=== PATIENT | male | born 1960 | race Caucasian/White ===

== ENCOUNTER 2025-04-14 11:56 | Outpatient (AMB) | payer BC, SELFPAY ==
--- OUTSIDE RECORDS SUMMARY | 2025-04-14 13:11 | XMS_ITS | Clinical Summary ---
Author Organization [address] [place] [address] [place] [phone] Phone Care Team Providers Care Export Documents Clerk Name Role Phone Nirali English MD Primary Care Provider [phone]- [phone] Allergies Active Allergy Reactions Criticality Noted Date Comments House Dust 06/12/2023 Ragweed 06/12/2023 Medications apixaban (Eliquis) 5 mg tablet Take 1 tablet (5 mg total) by mouth 2 (two) times a day. 3 Active LORazepam (ATIVAN) 0.5 mg tablet See Instructions, PRN as needed for anxiety, 1-2 tablet By Mouth Daily at bedtime, # 30 tablet, 1 Refills, Maintenance, 09/13/23 2:07:00 PM EST, Tablet, [id number], Partial fill upon patient request if the prescription is for a schedule II opioid drug. DOSE CHANGE, 176, cm, 09/13/23 13:25:00 EST, Height, 97.6, kg, 05/25/23 11:11:00 EDT, Dry Weight 4 Active dilTIAZem CD (CARDIZEM CD) 180 mg 24 hr capsule Take 1 capsule (180 mg total) by mouth 1 (one) time each day. 90 capsule 1 5 Active Active Problems Problem Noted Date Diagnosed Date Coronary artery calcification 11/12/2024 Overview (11/12/2024): Coronary calcium scan performed. Agate stent score 147 37 left main 71 in the LAD and 39 circumflex. Assessment & Plan (11/12/2024 10:57 AM EDT): Stable coronary disease with no active angina. I again discussed the pros and cons of lipid-lowering but he is reluctant to start statin. He will continue healthy diet. Encouraged regular exercise which he generally does not do. He is treating his obstructive sleep apnea with CPAP. HLD (hyperlipidemia) 11/08/2024 GURPREET (obstructive sleep apnea) 11/08/2024 Primary hypertension 06/12/2023 Overview (08/05/2024): Primary hypertension Last Assessment & Plan: Continues to be normotensive. Continue to diltiazem and a low-sodium diet. Continue regular exercise. Assessment & Plan (11/12/2024 10:56 AM EDT): Appears relatively well-controlled on current medications. Continue low-sodium diet and efforts at weight loss. PAF (paroxysmal atrial fibri llation) ([facility] V24, [facility] V28) 12/06/2022 Overview (08/05/2024): Paroxysmal atrial fibrillation: Status post pulmonary isolation with cryoballoon ablation April 2019. He had 1 apparent episode of SVT that terminated with carotid massage. There is no inducible SVT at the time of his ablation. He is no longer anticoagulated and continues to have a Chadsvasc score of 1. Last Assessment & Plan: No recurrent atrial fibrillation since her last visit. We will continue with diltiazem for antihypertensive effect and rate control. We can use flecainide if needed but hopefully will not have any recurrent episodes. Continue to avoid excessive alcohol and follow a healthy lifestyle with regular exercise. Assessment & Plan (11/12/2024 10:56 AM EDT): This 64-year-old gentleman has symptomatic paroxysmal atrial fibrillation with pulmonary vein isolation 2018 and again in November 2023 with reisolation of the pulmonary veins. He has been off of antiarrhythmic agents with only a few somewhat brief breakthroughs. Based on [id number] score of 3 for hypertension, age and coronary disease he continues on Eliquis but is running into difficulty with GI bleeding. He has another follow-up appointment with a GI specialist who is suggesting an alternative to Eliquis. I went through the left atrial appendage closure process with him discussing the risks and benefits, alternatives and he would like to proceed. I will have a DEMARCUS performed to look at the MORTEZA anatomy and decide if we can continue. Encounters Date Type Department Care Team Description 03/31/2025 Telephone [facility] Cardiology [facility] [address] [place] [phone] Abby Rodriguez NP Procedure (DEMARCUS Assess WATCHMAN 9.5.25) 03/26/2025 Telephone [facility] [address] [place] [address] [address] [place] [phone] Zack Schmidt MD Advice Only from Last 3 Months Social History Tobacco Use Types Packs/Day Years Used Date Smoking Tobacco: Former Smokeless Tobacco: Never Tobacco Cessation:Counseling Given: Not Answered Alcohol Use Standard Drinks/Week Comments Yes 0 (1 standard drink = 0.6 oz pur e alcohol) Sex and Gender Information Value Date Recorded Sex Assigned at Not on file Legal Sex Male 3:18 AM EST Gender Identity Not on file Sexual Orientation Not on file Obstetrics History Last Filed Vital Signs Vital Sign Reading Time Taken Comments Blood Pressure 128/88 11/12/2024 10:07 AM EDT Pulse 67 11/12/2024 10:07 AM EDT Temperature - - Respiratory Rate - - Oxygen Saturation 95% 11/12/2024 10:07 AM EDT Inhaled Oxygen Concentration - - Weight 104 kg (230 lb) 11/12/2024 10:07 AM EDT Height 175.3 cm (5' 9 ) 11/12/2024 10:07 AM EDT Body Mass Index 33.97 11/12/2024 10:07 AM EDT Plan of Treatment Upcoming Encounters Date Type Department Care Team (Late st Contact Info) Description 05/02/2025 1:30 PM EDT Appointment [facility] Cardiac [employer] [address] [place] [phone] Kiran Madera MD [address] [place] [address] [address] [place], [place] [phone] Scheduled Procedures Name Priority Associated Diagnoses Date/Ti me LEFT ATRIAL APPENDAGE CLOSUR E (OTHER) PAF (paroxysmal atrial fibrillation) ([facility] V24, [facility] V28) Health Maintenance Due Date Last Done Comments Pneumococcal Vaccine: 50+ Years (1 of 1 - PCV) 2008 Zoster Vaccines (1 of 2) 2008 Abdominal Aortic Aneurysm (AAA) Screen 08/06/2022 Cholesterol Screening (Lipid Panel) 08/06/2022 Colorectal Cancer Screening: Colonoscopy 08/06/2022 Hepatitis C Screening 08/06/2022 Social Influencers of Health Screening 08/06/2022 Falls Risk Assessment 2023 COVID-19 Vaccine (1 - 2023-2 5 season) 2024 Depression Screening 08/28/2024 Influenza Vaccine (#1) 2025 Hypertension/CHF/CAD Annual BMP Blood Test 04/07/2026 04/07/2025 RSV Immunization Adult Patients (1 - 1-dose 75+ series) 2033 DTaP,Tdap,and Td Vaccines (3 - Td or Tdap) 09/13/2033 09/13/2023, 02/08/2013 HIB Vaccines Aged Out No longer eligi ble based on patient's age to complete this topic HPV Vaccines Aged Out No longer eligi ble based on patient's age to complete this topic Hepatitis A Vaccines Aged Out No long er eligible based on patient's age to complete this topic Hepatitis B Vaccines Aged Out No long er eligible based on patient's age to complete this topic IPV Vaccines Aged Out No longer eligi ble based on patient's age to complete this topic MMR Vaccines Aged Out No longer eligi ble based on patient's age to complete this topic Meningococcal ACWY Vaccine Aged Out N o longer eligible based on patient's age to complete this topic Meningococcal B Vaccine Aged Out No l onger eligible based on patient's age to complete this topic RSV Immunization Patients Under 20 months Aged Out No longer eligible b ased on patient's age to complete this topic Varicella Vaccines Aged Out No longer eligible based on patient's age to complete this topic Procedures Procedure Name Priority Date/Time Associated Diagnosis Comments BASIC METABOLIC PANEL Routine 04/07/2025 3:48 PM EDT PAF (paroxysmal atrial fibrillation) ([facility] V24, [facility] V28) PROTHROMBIN TIME WITH INR Routine 04/07/2025 3:48 PM EDT PAF (paroxysmal atrial fibrillation) (CMS/HCC V24, CMS/HCC V28) COMPLETE BLOOD COUNT Routine 04/07/2025 3:48 PM EDT PAF (paroxysmal atrial fibrillation) (CMS/HCC V24, CMS/HCC V28) from Last 3 Months Results * Prothrombin time with INR (04/07/2025 3:48 PM EDT) Pathologist [facility] Protime 11.7 10.6 - 13.9 sec LAB COAGULATION METHOD 04/07/2025 4:21 PM EDT [facility] INR 0.9 LAB COAGULATION METHOD 04/07/2025 4:21 PM EDT [facility] Blood Venous blood specimen / Unknown Venipuncture / Unknown 04/07/2025 3:48 PM EDT 04/07/2025 3:59 PM EDT us Abby Rodriguez FLAME HARDENING MACHINE SETTER LAB BLOOD ORDERABLES Final R esult [facility] [address] [place] [address], * (ABNORMAL) Complete blood count (04/07/2025 3:48 PM EDT) Pathologist [facility] WBC 10.4 4.8 - 10.8 K/mcL LAB HEMETOLOGY METHOD 04/07/2025 4:20 PM EDT [facility] RBC 5.70(H) 4.50 - 5.50 M/mcL LAB HEMETOLOGY METHOD 04/07/2025 4:20 PM EDT [facility] Hemoglobin 16.2 13.5 - 17.5 g/dL LAB HEMETOLOGY METHOD 04/07/2025 4:20 PM EDT [facility] Hematocrit 49.5 42.0 - 54.0 % LAB HEMETOLOGY METHOD 04/07/2025 4:20 PM EDT [facility] MCV 86.5 79.0 - 98.0 FL LAB HEMETOLOGY METHOD 04/07/2025 4:20 PM EDT [facility] MCH 28.3 27.0 - 32.0 pcg LAB HEMETOLOGY METHOD 04/07/2025 4:20 PM EDT [facility] MCHC 32.7 32.0 - 37.0 g/dL LAB HEMETOLOGY METHOD 04/07/2025 4:20 PM EDT [facility] RDW 14.5 11.0 - 15.0 % LAB HEMETOLOGY METHOD 04/07/2025 4:20 PM EDT [facility] Platelets 189 130 - 400 K/mcL LAB HEMETOLOGY METHOD 04/07/2025 4:20 PM EDT [facility] MPV 9.6 7.0 - 11.0 FL LAB HEMETOLOGY METHOD 04/07/2025 4:20 PM EDT [facility] NRBC 0.0 <1.0 % LAB HEMETOLOGY METHOD 04/07/2025 4:20 PM EDT [facility] NRBC Absolute 0.00 <0.10 K/mcL LAB HEMETOLOGY METHOD 04/07/2025 4:20 PM EDT [facility] Blood Venous blood specimen / Unknown Venipuncture / Unknown 04/07/2025 3:48 PM EDT 04/07/2025 3:59 PM EDT us Abby Rodriguez FLAME HARDENING MACHINE SETTER LAB BLOOD ORDERABLES Final R esult [facility] [address] [place] [address], * (ABNORMAL) Basic metabolic panel (04/07/2025 3:48 PM EDT) Sodium 140 133 - 145 mmol/L LAB CHEMISTRY METHOD 04/07/2025 5:09 PM [facility] Potassium 4.3 3.5 - 5.5 mmol/L LAB CHEMISTRY METHOD 04/07/2025 5:09 PM [facility] Chloride 108 96 - 110 mmol/L LAB CHEMISTRY METHOD 04/07/2025 5:09 PM [facility] CO2 30 21 - 32 mmol/L LAB CHEMISTRY METHOD 04/07/2025 5:09 PM [facility] Anion Gap 2(L) 3 - 11 LAB CHEMISTRY METHOD 04/07/2025 5:09 PM [facility] Glucose 101(H) 70 - 100 mg/dL LAB CHEMISTRY METHOD 04/07/2025 5:09 PM [facility] BUN 18 5 - 25 mg/dL LAB CHEMISTRY METHOD 04/07/2025 5:09 PM [facility] Creatinine 1.18 0.70 - 1.30 mg/dL LAB CHEMISTRY METHOD 04/07/2025 5:09 PM [facility] eGFR 68 >=60 mL/min/1. 73m2 LAB CHEMISTRY METHOD 04/07/2025 5:09 PM [facility] Comment:Calculation based on the Chronic Kidney Disease Epidemiology Collaboration (CKD-EPI) equation refit without adjustment for race. BUN/Creatinine Ratio 15.3 LAB CHEMISTRY METHOD 04/07/2025 5:09 PM [facility] Calcium 8.9 8.5 - 10.5 mg/dL LAB CHEMISTRY METHOD 04/07/2025 5:09 PM [facility] Blood Venous blood specimen / Unknown Venipuncture / Unknown 04/07/2025 3:48 PM EDT 04/07/2025 3:58 PM EDT Abby Rodriguez FLAME HARDENING MACHINE SETTER LAB BLOOD ORDERABLES Final R esult [facility] [address] [place] [address], from Last 3 Months Insurance MEDICARE [facility] Advance Directives Documents on File Type Date Recorded 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
== END 2025-04-14 11:58 | disposition home or self-care (01) ==
LOC: HO.HMGAL 11:56
PROVIDERS: PCP Internal Medicine; Visit Provider Registered Nurse Emergency
DX: J30.89 Other allergic rhinitis (principal)
CPT/HCPCS: 95117; 95165

== ENCOUNTER 2025-05-21 11:37 | Outpatient (AMB) | payer BC, SELFPAY ==
--- OUTSIDE RECORDS SUMMARY | 2025-05-21 14:42 | XMS_ITS | Encounter Summary ---
Author Organization [facility] [place] [address] Care Team Providers Care Circular Knife Machine Cutter Name Role Phone Nirali English MD Primary Care Provider +1- [phone] Reason for Visit * Reason Onset Date Comments Results 05/16/2025 Encounter Details Date Type Department Care Team (Late st Contact Info) Description 05/16/2025 Telephone [facility] [address] [facility] [address] [place] [phone] Zack Schmidt MD [address] [place] [address] [place] [phone] Social History Tobacco Use Types Packs/Day Years Used Date Smoking Tobacco: Former Smokeless Tobacco: Never Alcohol Use Standard Drinks/Week Comments Yes 0 (1 standard drink = 0.6 oz pur e alcohol) Sex and Gender Information Value Date Recorded Sex Assigned at Not on file Legal Sex Male 3:18 AM EST Gender Identity Not on file Sexual Orientation Not on file documented as of this encounter Progress Notes * Rhea Rodriguez RN - 05/16/2025 1:17 PM EDT Interpretation summary noted for DEMARCUS. Please review/advise regarding next steps. * Surekha Bliss - 05/16/2025 1:11 PM EDT Patient called to get the test results for his DEMARCUS on 05/02/25. Please call back [phone]. documented in this encounter Plan of Treatment Scheduled Procedures Name Priority Associated Diagnoses Date/Ti me LEFT ATRIAL APPENDAGE CLOSUR E (OTHER) PAF (paroxysmal atrial fibrillation) ([facility] V24, [facility] V28) documented as of this encounter Visit Diagnoses Not on filedocumented in this encounter Care Teams Circular Knife Machine Cutter Relationship Specialty Start Date End Date Nirali English MD [address] [place] [address] PCP - General Internal Medicine 05/17/21 documented as of this encounter
--- OUTSIDE RECORDS SUMMARY | 2025-05-21 14:43 | XMS_ITS | Clinical Summary ---
Author Organization [address] [place] [address] [place] [phone] Phone Care Team Providers Care Business Process Coordinator Name Role Phone Nirali English MD Primary Care Provider +1- [phone] Allergies Active Allergy Reactions Criticality Noted Date [...] Maintenance, 09/13/23 2:07:00 PM EST, Tablet, [id number], Partial fill upon patient request if the [...] weight loss. PAF (paroxysmal atrial fibri llation) ([facility] V24, [facility] V28) 12/06/2022 Overview (08/05/2024): Paroxysmal [...] a few somewhat brief breakthroughs. Based on [id number] score of 3 for hypertension, age and [...] Encounters Date Type Department Care Team Description 05/16/2025 Telephone [facility] Cardiology [facility] [address] [facility] [address] [place] [phone] Zack Schmidt MD 05/05/2025 Episode Changes [facility] Cardiac Cashier And Waiter/Waitress [address] [place] [address] Rosa Elena Wolf RN 05/02/2025 2:15 PM EDT Anesthesia Event [facility] Cardiac Cashier And Waiter/Waitress [address] [place] [phone] Danielito Burkett MD 05/02/2025 12:22 PM EDT - 05/02/2025 11:59 PM EDT Hospital Encounter [facility] Cardiac Cashier And Waiter/Waitress [address] [place] [phone] Kiran Madera MD Claudio, Raymund, CRNA PAF (paroxysmal atrial fibrillation) ([facility] V24, [facility] V28) Discharge Disposition: Home or Self Care 03/31/2025 Telephone [facility] Cardiology [facility] [address] [facility] [address] [place] [phone] Abby Rodriguez NP 03/26/2025 Telephone [facility] [address] [place] [phone] Zack Schmidt MD from Last 3 Months Social History Tobacco [...] Sign Reading Time Taken Comments Blood Pressure 132/97 05/02/2025 3:30 PM EDT Pulse 73 05/02/2025 3:30 PM EDT Temperature - - Respiratory Rate 22 05/02/2025 3:30 PM EDT Oxygen Saturation 93% 05/02/2025 3:30 PM EDT Inhaled Oxygen Concentration - - Weight 101 kg (222 lb) 05/02/2025 1:12 PM EDT Height 175.3 cm (5' 9 ) 05/02/2025 1:12 PM EDT Body Mass Index 32.78 05/02/2025 1:12 PM EDT Plan of Treatment Scheduled Procedures Name Priority Associated Diagnoses Date/Ti me LEFT ATRIAL APPENDAGE CLOSUR E (OTHER) PAF (paroxysmal atrial fibrillation) ([facility] V24, [facility] V28) Health Maintenance Due Date Last Done Comments Pneumococcal Vaccine: 50+ Years (1 of 1 - PCV) 2008 Zoster Vaccines (1 of 2) 2008 Abdominal Aortic Aneurysm (AAA) Screen 08/06/2022 Cholesterol Screening (Lipid Panel) 08/06/2022 Colorectal Cancer Screening: Colonoscopy 08/06/2022 Hepatitis C Screening 08/06/2022 Social Influencers of Health Screening 08/06/2022 Falls Risk Assessment 2023 Depression Screening 08/28/2024 COVID-19 Vaccine (1 - 2023-2 5 season) 2025 Influenza Vaccine (#1) 2025 Hypertension/CHF/CAD Annual BMP [...] Procedure Name Priority Date/Time Associated Diagnosis Comments DEMARCUS COMPLETE W/COLOR FLOW AND SPECTRAL DOPPLER Routine 05/02/2025 3:04 PM EDT PAF (paroxysmal atrial fibrillation) (CMS/HCC V24, CMS/HCC V28) BASIC METABOLIC PANEL Routine 04/07/2025 3:48 PM EDT PAF (paroxysmal atrial fibrillation) (CMS/HCC V24, CMS/HCC V28) PROTHROMBIN TIME WITH INR Routine 04/07/2025 3:48 PM EDT PAF (paroxysmal atrial fibrillation) (CMS/HCC V24, CMS/HCC V28) COMPLETE BLOOD COUNT Routine 04/07/2025 3:48 PM EDT PAF (paroxysmal atrial fibrillation) (CMS/HCC V24, CMS/HCC V28) from Last 3 Months Results * DEMARCUS COMPLETE W/COLOR FLOW AND SPECTRAL DOPPLER (05/02/2025 3:04 PM EDT) BSA 2.21 m2 CV PACS LA Appendage Velocity 88 cm/s CV PACS LA Appendage 0 Degree Osital Diameter 17.0 mm CV PACS LA Appendage 0 Degree Osital Depth 26.0 mm CV PACS LA Appendage 45 Degree Ostial Diameter 17.0 mm CV PACS LA Appendage 45 Degree Ostial Depth 27.0 mm CV PACS LA Appendage 90 Degree Ostial Diameter 16.0 mm CV PACS LA Appendage 90 Degree Ostial Depth 28.0 mm CV PACS LA Appendage 135 Degree Ostial Diameter 19.0 mm CV PACS LA Appendage 135 Degree Depth 36.0 mm CV PACS Aortic Root 3.9 cm CV PACS Aortic Root Index 1.81 cm/m2 CV PACS Ascending Aorta 3.5 cm CV PACS Ascending Aorta Index 1.62 cm/m2 CV PACS LA Appendage Max Ostial Diameter 19.0 mm CV PACS LA Appendage Max Ostial Depth 36.0 mm CV PACS Anatomical Region Laterality Modality X-Ray Angiograph y Narrative 05/07/2025 9:23 AM EDT Left ventricle cavity size is normal. Left ventricular systolic function is in the normal range with an ejection fraction of 55-60%. No regional LV wall motion abnormalities noted. Right ventricle cavity is normal. Right ventricular systolic function is normal. Left Atrium: The left atrial appendage is normal. The atrial appendage velocity is normal (greater than 40 cm/sec). There is no thrombus in the left atrial appendage. Maximum left atrial appendage ostium diameter was 19 mm; maximum left atrial appendage that was 36 mm. Aortic Valve: There is mild regurgitation. Tricuspid Valve: There is mild regurgitation. Mitral Valve: There is mild regurgitation. Left Ventricle Left ventricle cavity size is normal. Wall thickness is normal. Systolic function is normal with an ejection fraction of 55-60%. There are no regional LV wall motion abnormalities. Unable to assess diastolic function. Right Ventricle Right ventricle cavity appears grossly normal. Systolic function is grossly normal. Left Atrium Left atrium cavity size is grossly normal. The left atrial appendage is normal. The atrial appendage velocity is normal (greater than 40 cm/sec). There is no thrombus in the left atrial appendage. Right Atrium Right atrium cavity is grossly normal. There is a prominent Eustachian valve. Mitral Valve The leaflets are mildly thickened. There is mild regurgitation. The mitral valve is opening well. Tricuspid Valve Tricuspid valve structure is normal. There is mild regurgitation. The tricuspid valve is opening well. Aortic Valve The aortic valve is trileaflet. There is mild regurgitation. The aortic valve is opening well. Pulmonic Valve There is trace pulmonic valve regurgitation. No significant pulmonary valve stenosis noted. Ascending Aorta The aorta appears normal in size. Pericardium Pericardium appears normal. There is no pericardial effusion. Study Details Overall the study quality was adequate. A transesophageal echo was performed using 3D imaging and postprocessing performed without an independent workstation. The underlying ECG rhythm was sinus rhythm. The procedure, risks and alternatives were explained. Informed consent was obtained. The probe was inserted by the ground school instructor. There was no probe insertion difficulty. by anesthesia. The patient had no complications. Estimated blood loss: no blood loss. No specimens were collected. Clinical Background 64 years old male patient with history of paroxysmal atrial fibrillation who was referred for a transesophageal echocardiogram prior to a potential Watchman device placement. Procedure Details [facility] Department of cardiology Procedure: Transesophageal echocardiogram Indication: Evaluation prior to Watchman device placement Contraindication: None Anesthesia: Intravenous medications for sedation were administered by the anesthesia service. Procedure description: The patient was referred for a transesophageal echocardiogram for evaluation of the left atrial appendage prior to a Watchman device placement The patient does not have any history of neck surgeries, radiation to the neck, dysphagia, recent upper GI bleeding, recent upper gastrointestinal surgery, or thrombocytopenia. I explained the procedure to the patient and we discussed the benefits and risks of the procedure. Specifically, I discussed the possible procedural complications of a DEMARCUS which include: Esophageal rupture/perforation, gastric rupture/perforation, GI bleed, gastric rupture/perforation, laryngospasm/bronchospasm, aspiration, or dental injuries. After the conversation, the patient agreed to undergo the procedure. An appropriate timeout was performed in the presence of the anesthesia and nursing services. The patient was monitored with a gambling monitor, blood pressure monitor, and oxygen saturation monitoring throughout the procedure. Sedation was provided by the anesthesia service. The DEMARCUS probe was inserted without complications. A complete transesophageal echocardiogram study was performed. The probe was retrieved without complications. After the patient regained consciousness, I explained the findings to the patient. The patient was successfully monitored in the recovery unit and was discharged home in a stable manner. Postprocedure instructions: Before the patient was discharged, I had an extensive conversation with the patient regarding the warning signs that should prompt an urgent evaluation in the emergency room. Specifically, I told the patient to come to the emergency room immediately if the patient noticed any of the following symptoms at home: chest discomfort, shortness of breath, dysphagia, odynophagia, throat discomfort, or bleeding Disposition: Discharge home. us Abby Rodriguez NP CV ECHO PROCEDURES Final Res ult * Prothrombin time with INR (04/07/2025 3:48 PM EDT) Protime 11.7 10.6 - 13.9 sec LAB COAGULATION METHOD 04/07/2025 4:21 PM EDT [facility] INR 0.9 LAB COAGULATION METHOD 04/07/2025 4:21 PM EDT [facility] Blood Venous blood specimen / Unknown Venipuncture / Unknown 04/07/2025 3:48 PM EDT 04/07/2025 3:59 PM EDT us Abby Rodriguez X RAY DEVELOPING MACHINE OPERATOR LAB BLOOD ORDERABLES Final R esult [facility] [address] [place] [address], * (ABNORMAL) Complete blood count (04/07/2025 3:48 PM EDT) [facility] WBC 10.4 4.8 - 10.8 K/mcL LAB HEMETOLOGY METHOD 04/07/2025 4:20 PM EDT [facility] RBC 5.70(H) 4.50 - 5.50 M/mcL LAB HEMETOLOGY METHOD 04/07/2025 4:20 PM EDT [facility] Hemoglobin 16.2 13.5 - 17.5 g/dL LAB HEMETOLOGY METHOD 04/07/2025 4:20 PM EDT [facility] Hematocrit 49.5 42.0 - 54.0 % LAB HEMETOLOGY METHOD 04/07/2025 4:20 PM EDT [facility] MCV 86.5 79.0 - 98.0 FL LAB HEMETOLOGY METHOD 04/07/2025 4:20 PM EDT [facility] MCH 28.3 27.0 - 32.0 pcg LAB HEMETOLOGY METHOD 04/07/2025 4:20 PM EDT [facility] MCHC 32.7 32.0 - 37.0 g/dL LAB HEMETOLOGY METHOD 04/07/2025 4:20 PM EDT [facility] RDW 14.5 11.0 - 15.0 % LAB HEMETOLOGY METHOD 04/07/2025 4:20 PM EDT [facility] Platelets 189 130 - 400 K/mcL LAB HEMETOLOGY METHOD 04/07/2025 4:20 PM EDT [facility] MPV 9.6 7.0 - 11.0 FL LAB HEMETOLOGY METHOD 04/07/2025 4:20 PM EDT [facility] NRBC 0.0 <1.0 % LAB HEMETOLOGY METHOD 04/07/2025 4:20 PM EDT [facility] NRBC Absolute 0.00 <0.10 K/mcL LAB HEMETOLOGY METHOD 04/07/2025 4:20 PM EDT [facility] Blood Venous blood specimen / Unknown Venipuncture / Unknown 04/07/2025 3:48 PM EDT 04/07/2025 3:59 PM EDT Abby Rodriguez X RAY DEVELOPING MACHINE OPERATOR LAB BLOOD ORDERABLES Final R esult [facility] [address] [place] [address], * (ABNORMAL) Basic metabolic panel (04/07/2025 3:48 PM EDT) Sodium 140 133 - 145 mmol/L LAB CHEMISTRY METHOD 04/07/2025 5:09 PM EDT [facility] Potassium 4.3 3.5 - 5.5 mmol/L LAB CHEMISTRY METHOD 04/07/2025 5:09 PM EDT [facility] Chloride 108 96 - 110 mmol/L LAB CHEMISTRY METHOD 04/07/2025 5:09 PM EDT [facility] CO2 30 21 - 32 mmol/L LAB CHEMISTRY METHOD 04/07/2025 5:09 PM EDT [facility] Anion Gap 2(L) 3 - 11 LAB CHEMISTRY METHOD 04/07/2025 5:09 PM EDT [facility] Glucose 101(H) 70 - 100 mg/dL LAB CHEMISTRY METHOD 04/07/2025 5:09 PM EDT [facility] BUN 18 5 - 25 mg/dL LAB CHEMISTRY METHOD 04/07/2025 5:09 PM EDT [facility] Creatinine 1.18 0.70 - 1.30 mg/dL LAB CHEMISTRY METHOD 04/07/2025 5:09 PM EDT [facility] eGFR 68 >=60 mL/min/1. 73m2 LAB CHEMISTRY METHOD 04/07/2025 5:09 PM T [facility] Comment:Calculation based on the Chronic Kidney Disease Epidemiology Collaboration (CKD-EPI) equation refit without adjustment for race. BUN/Creatinine Ratio 15.3 LAB CHEMISTRY METHOD 04/07/2025 5:09 PM [facility] Calcium 8.9 8.5 - 10.5 mg/dL LAB CHEMISTRY METHOD 04/07/2025 5:09 PM [facility] Blood Venous blood specimen / Unknown Venipuncture / Unknown 04/07/2025 3:48 PM EDT 04/07/2025 3:58 PM EDT us Abby Rodriguez X RAY DEVELOPING MACHINE OPERATOR LAB BLOOD ORDERABLES Final R esult [facility] [address] [place] [address], from Last 3 Months Insurance MEDICARE [facility] Advance Directives Documents on File Type Date Recorded Patient Floor Scrubber Expl anation Health Care Decision (hx) 03/19/2021 AD ARROYO DIRECTIVE Health Care Decision (hx) 03/19/2021 AD ARROYO DIRECTIVE Health Care Decision (hx) 03/19/2021 AD ARROYO DIRECTIVE Health Care Decision (hx) 03/19/2021 AD ARROYO DIRECTIVE Health Care Decision (hx) 03/19/2021 AD ARROYO DIRECTIVE Care Teams Business Process Coordinator Relationship Specialty Start Date End Date Nirali English MD [address] [place] [id number] PCP - General Internal Medicine 05/17/21
== END 2025-05-21 11:44 | disposition home or self-care (01) ==
LOC: HO.HMGAL 11:37
PROVIDERS: Visit Provider Registered Nurse Emergency
DX: J30.89 Other allergic rhinitis (principal)
CPT/HCPCS: 95117; 95165

== ENCOUNTER 2025-06-23 16:07 | Outpatient (AMB) | payer BC, SELFPAY ==
--- OUTSIDE RECORDS SUMMARY | 2025-06-23 19:01 | XMS_ITS | Clinical Summary ---
Author Organization [address] [place] [address] [place] [phone] Phone Care Team Providers Care Floorworker Distributor Name Role Phone Nirali English MD Primary Care Provider +1- [phone] Allergies Active Allergy Reactions Criticality Noted Date [...] Maintenance, 09/13/23 2:07:00 PM EST, Tablet, [id number], Partial fill upon patient request if the [...] weight loss. PAF (paroxysmal atrial fibri llation) ([facility] V24, [facility] V28) 12/06/2022 Overview (08/05/2024): Paroxysmal atrial fibrillation: [...] a few somewhat brief breakthroughs. Based on [id number] score of 3 for hypertension, age and [...] Encounters Date Type Department Care Team Description 06/11/2025 Telephone [facility] [address] [place] [address] Guera Covarrubias, RN 05/30/[address] [address] Guera Covarrubias, RN 05/16/2025 Telephone [facility] Cardiology [facility] [address] [facility] [address] [place] [phone] Zack Schmidt MD 05/05/2025 Episode Changes [facility] Cardiac Second Ride Fare Collector [address] [place] [phone] Rosa Elena Wolf RN 05/02/2025 2:15 PM EDT Anesthesia Event [facility] Cardiac Second Ride Fare Collector [address] [place] [phone] Danielito Burkett MD 05/02/2025 12:22 PM EDT - 05/02/2025 11:59 PM EDT Hospital Encounter [facility] Cardiac Second Ride Fare Collector [address] [place] [phone] Kiran Madera MD Claudio, Raymund, CRNA PAF (paroxysmal atrial fibrillation) ([facility] V24, CMS/[facility] V28) Discharge Disposition: Home or Self Care 03/31/2025 Telephone [facility] Cardiology [facility] [address] [facility] [address] [place] [phone] Abby Rodriguez NP 03/26/2025 Telephone [facility] Cardiology [address] [place] [phone] Zack Schmidt MD from Last 3 Months [...] CLOSUR E (OTHER) PAF (paroxysmal atrial fibrillation) ([facility] V24, [facility] V28) Health Maintenance Due Date Last Done Comments Colorectal Cancer Screening: Colonoscopy 1960 Pneumococcal Vaccine: 50+ Years (1 of 1 - PCV) 2008 Zoster Vaccines (1 of 2) 2008 Abdominal Aortic Aneurysm (AAA) Screen 08/06/2022 Cholesterol Screening (Lipid Panel) 08/06/2022 Hepatitis C Screening 08/06/2022 Social Influencers [...] obtained. The probe was inserted by the license distributor. There was no probe insertion difficulty. by anesthesia. The patient had no complications. Estimated blood loss: no blood loss. No specimens were collected. Clinical Background 64 years old male patient with history of paroxysmal atrial fibrillation who was referred for a transesophageal echocardiogram prior to a potential Watchman device placement. Procedure Details [facility] Department of cardiology Procedure: Transesophageal [...] services. The patient was monitored with a bus driver/monitor, blood pressure monitor, and oxygen saturation monitoring [...] time with INR (04/07/2025 3:48 PM EDT) [facility] Protime 11.7 10.6 - 13.9 sec LAB COAGULATION METHOD 04/07/2025 4:21 PM EDT [facility] INR 0.9 LAB COAGULATION METHOD 04/07/2025 4:21 PM EDT [facility] Blood Venous blood specimen / Unknown Venipuncture / Unknown 04/07/2025 3:48 PM EDT 04/07/2025 3:59 PM EDT us Abby Rodriguez NP LAB BLOOD ORDERABLES Final R esult [facility] [address] [place] [address], * (ABNORMAL) Complete blood count (04/07/2025 3:48 PM EDT) [facility] WBC 10.4 4.8 - 10.8 K/mcL LAB HEMETOLOGY METHOD 04/07/2025 4:20 PM EDT [facility] RBC 5.70(H) 4.50 - 5.50 M/mcL LAB HEMETOLOGY METHOD 04/07/2025 4:20 PM EDT [facility] Hemoglobin 16.2 13.5 - 17.5 g/dL LAB HEMETOLOGY METHOD 04/07/2025 4:20 PM EDT [facility] Hematocrit 49.5 42.0 - 54.0 % LAB HEMETOLOGY METHOD 04/07/2025 4:20 PM EDT [facility] MCV 86.5 79.0 - 98.0 FL LAB HEMETOLOGY METHOD 04/07/2025 4:20 PM EDT [facility] MCH 28.3 27.0 - 32.0 pcg LAB HEMETOLOGY METHOD 04/07/2025 4:20 PM EDT [facility] MCHC 32.7 32.0 - 37.0 g/dL LAB HEMETOLOGY METHOD 04/07/2025 4:20 PM EDT [facility] RDW 14.5 11.0 - 15.0 % LAB HEMETOLOGY METHOD 04/07/2025 4:20 PM EDT [facility] Platelets 189 130 - 400 K/mcL LAB HEMETOLOGY METHOD 04/07/2025 4:20 PM EDT [facility] MPV 9.6 7.0 - 11.0 FL LAB HEMETOLOGY METHOD 04/07/2025 4:20 PM EDT [facility] NRBC 0.0 <1.0 % LAB HEMETOLOGY METHOD 04/07/2025 4:20 PM EDT [facility] NRBC Absolute 0.00 <0.10 K/mcL LAB HEMETOLOGY METHOD 04/07/2025 4:20 PM EDT [facility] Blood Venous blood specimen / Unknown Venipuncture / Unknown 04/07/2025 3:48 PM EDT 04/07/2025 3:59 PM EDT us Abby Rodriguez PERSONNEL INTERVIEWER LAB BLOOD ORDERABLES Final R esult [facility] [address] [place] [address], * (ABNORMAL) Basic metabolic panel (04/07/2025 3:48 PM EDT) Sodium 140 133 - 145 mmol/L LAB CHEMISTRY METHOD 04/07/2025 5:09 PM EDT [facility] Potassium 4.3 3.5 - 5.5 mmol/L LAB CHEMISTRY METHOD 04/07/2025 5:09 PM [facility] Chloride 108 96 - 110 mmol/L LAB CHEMISTRY METHOD 04/07/2025 5:09 PM [facility] CO2 30 21 - 32 mmol/L LAB CHEMISTRY METHOD 04/07/2025 5:09 PM [facility] Anion Gap 2(L) 3 - 11 LAB CHEMISTRY METHOD 04/07/2025 5:09 PM [facility] Glucose 101(H) 70 - 100 mg/dL LAB CHEMISTRY METHOD 04/07/2025 5:09 PM [facility] BUN 18 5 - 25 mg/dL LAB CHEMISTRY METHOD 04/07/2025 5:09 PM [facility] Creatinine 1.18 0.70 - 1.30 mg/dL LAB CHEMISTRY METHOD 04/07/2025 5:09 PM [facility] eGFR 68 >=60 mL/min/1. 73m2 LAB CHEMISTRY METHOD 04/07/2025 5:09 PM [facility] Comment:Calculation based on the Chronic Kidney Disease Epidemiology Collaboration (CKD-EPI) equation refit without adjustment for race. BUN/Creatinine Ratio 15.3 LAB CHEMISTRY METHOD 04/07/2025 5:09 PM [facility] Calcium 8.9 8.5 - 10.5 mg/dL LAB CHEMISTRY METHOD 04/07/2025 5:09 PM [facility] Blood Venous blood specimen / Unknown Venipuncture / Unknown 04/07/2025 3:48 PM EDT 04/07/2025 3:58 PM EDT us Abby Rodriguez PERSONNEL INTERVIEWER LAB BLOOD ORDERABLES Final R esult [facility] [address] [place] [address], from Last 3 Months Insurance MEDICARE [facility] Advance Directives Documents on File Type Date Recorded Patient Director Of Collections And Archives Expl anation Health Care Decision (hx) 03/19/2021 AD ARROYO DIRECTIVE Health Care Decision (hx) 03/19/2021 AD ARROYO DIRECTIVE Health Care Decision (hx) 03/19/2021 AD ARROYO DIRECTIVE Health Care Decision (hx) 03/19/2021 AD ARROYO DIRECTIVE Health Care Decision (hx) 03/19/2021 AD ARROYO DIRECTIVE Care Teams Floorworker Distributor Relationship Specialty Start Date End Date Nirali English MD [address] [place] [address] PCP - General Internal Medicine 05/17/21
--- OUTSIDE RECORDS SUMMARY | 2025-06-23 19:01 | XMS_ITS ---
Author Name [facility] Organization Unknown History of Medication Use Medication Directions Dispensed Refills Start Date End Date Stat us dilTIAZem CD (CARDIZEM CD) 180 mg 24 hr capsule Take 1 capsule (180 mg total) by mouth 1 (one) time each day. 02/06/2025 active LORazepam (ATIVAN) 0.5 mg tablet See Instructions, PRN as needed for anxiety, 1-2 tablet By Mouth Daily at bedtime, # 30 tablet, 1 Refills, Maintenance, 09/13/23 2:07:00 PM EST, Tablet, [facility] #[id number], Partial fill upon patient request if the prescription is for a schedule II opioid drug. DOSE CHANGE, 176, cm, 09/13/23 13:25:00 09/13/2023 active apixaban (Eliquis) 5 mg tablet Take 1 tablet (5 mg total) by mouth 2 (two) times a day. 07/18/2023 active Allergies Allergen Reaction Severity Comment Documented Date Source Statu s HOUSE DUST 06/12/2023 [facility] active RAGWEED 06/12/2023 [facility] active Problems Problem Status Onset Date Problem Type Date of Resoluti on Source GURPREET (obstructive sleep apnea) active 2024-11-08 ProblemAct [facility] HLD (hyperlipidemia) active 2024-11-08 ProblemAct [facility] Primary hypertension active 2023-06-12 ProblemAct [facility] Coronary artery calcification active 2024-11-12 ProblemAct [facility] PAF (paroxysmal atrial fibrillation) (CMS/HCC V24, CMS/HCC V28) active 2022-12-06 ProblemAct [facility]
== END 2025-06-23 16:08 | disposition home or self-care (01) ==
LOC: HO.HMGAL 16:07
PROVIDERS: PCP Internal Medicine; Visit Provider Registered Nurse Emergency
DX: J30.89 Other allergic rhinitis (principal)
CPT/HCPCS: 95117; 95165

== ENCOUNTER 2025-07-18 15:14 | Outpatient (AMB) | payer BC, SELFPAY ==
--- NOTE | 2025-07-18 15:16 | MHC.PC.OV ---
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: No Accompanied by: Self / Same As Patient Allergies Penicillins Adverse Reaction (Intermediate, Verified 07/18/25 15:20) Loss of Appetite Medication List - Last Reconciled 07/18/25 by Nirali English MD apixaban (Eliquis) 5 mg PO BID diltiazem HCl CD 180 mg PO DAILY fluocinolone acetonide oil 0.01% 3 - 4 drps otic (ears) DAILY lorazepam 0.5 mg PO DAILY PRN Tobacco use date assessed: 07/18/25 Fall risk assessment: No Falls in past year Last assessed Fall Risk: 07/18/25 Dental Screening Dental Screen Date: 07/18/25 Did you have a dental visit in the last 12 months?: Yes Did you have a dental problem in the last 6 months where you did not have access to dental care?: No Was dental information given to patient?: Patient has dentist HPI HPI Comments History of Present Illness Details The patient is a 65 year old individual presenting to reestablish care. Atrial Fibrillation/HTN: The patient is scheduled to undergo a Watchman procedure on August [address] Schmidt at [facility]. Obstructive Sleep Apnea: The patient has a history of obstructive sleep apnea and was last seen for it six to seven years ago following a sleep study at [facility]. The patient discontinued using the CPAP machine last month, reporting subsequent improvements in sleep and breathing, subjectively notes he felt better off machine. Hemorrhoids: The patient was seen by Dr. Diallo at [facility] for hemorrhoids and is scheduled for a follow-up in March of next year. While surgery was mentioned as an option, the patient was advised to make dietary changes first. The patient has increased fiber intake, which has helped. Anxiety: The patient has a prescription for lorazepam, which is used sparingly for anxiety and sleep issues, particularly during times of stress. The patient still has medication left from a prescription filled two years ago, indicating infrequent use. The patient reports waking up two hours after falling asleep and feeling wired, and mentions stress related to the recent of a friend and the of the patient's four years ago. Erectile Dysfunction: The patient reported erectile dysfunction at the end of the visit and requested a specialist consultation. [facility] Medical History (Updated 07/18/25 @ 17:50 by Nirali English MD) Erectile dysfunction Impaired fasting glucose GURPREET (obstructive sleep apnea) Tubular adenoma Primary hypertension Atrial fibrillation Surgical History (Updated 07/18/25 @ 13:28 by Nirali English MD) H/O vasectomy History of colonoscopy (~10/10/23) Family History (Updated 07/18/25 @ 13:27 by Nirali English MD) Other Primary hypertension TIA (transient ischemic attack) Thyroid cancer Social History Housing: House Patient Tobacco Use Status: Former Tobacco user Years Smoked: about 40 years e-Cigarette/Vaping Use: Never Used service: No Current occupational status: employed 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 1. Little interest or pleasure in doing things: not at all 2. Feeling down, depressed, or hopeless: several days 3. Trouble falling or staying asleep, or sleeping too much: nearly every day 4. Feeling tired or having little energy: several days 5. Poor appetite or overeating: not at all 6. Feeling bad about yourself - or that you are a failure or have let yourself or your family down: several days 7. Trouble concentrating on things, such as reading the newspaper or watching television: more than half the days 8. Moving or speaking so slowly that other people could have noticed. Or the opposite - being so fidgety or restless that you have been moving around a lot more than usual: not at all 9. Thoughts that you would be better off or of hurting yourself in some way: not at all Total score: 8 Depression Screening Interpretation: Positive Depression Screening Follow-up: Existing condition Depression Screening Done: Yes 49380 - PHQ-9 Billing: Yes Source: Developed by Drs. Jabari Arzola, Nell Crain, Derek Tinoco and colleagues, with an educational bebeto from [employer]. AUDIT C Alcohol Use Questionnaire (AUDIT-C) 1. How often do you have a drink containing alcohol?: Monthly or less 2. How many drinks containing alcohol do you have on a typical day when you are drinking?: 1 or 2 3. How often do you have six or more drinks on one occasion?: Never Total Score: 1 Review of Systems Narrative Review of Systems -Cardiovascular: per hpi - Respiratory :per hpi - Gastrointestinal: Reports improvement in hemorrhoid symptoms with increased dietary fiber. - Neurological/Psychiatric: per hpi -Genitourinary: Reports erectile dysfunction Physical exam (Primary Care) Vital Signs: Last Vital Signs Temp 97.7 F 07/18/25 15:17 Pulse 72 07/18/25 15:17 Resp 16 07/18/25 15:17 BP 130/82 07/18/25 15:17 Pulse Ox 97 07/18/25 15:17 Oxygen Delivery Method Room Air 07/18/25 15:17 BMI result Body Mass Index 33.5 Tobacco/Smoking Status: Tobacco use Status Tobacco use date assessed 07/18/25 07/18/25 15:24 Patient Tobacco Use Status Former Tobacco user 07/18/25 15:24 e-Cigarette/Vaping Use Never Used 07/18/25 15:24 PHQ-9: PHQ-9 Score PHQ-9: Total score 8 07/18/25 16:12 Depression Screening Interpretation: Positive Depression Screening Follow-up: Existing condition Narrative Physical Exam - Cardiovascular: Normal sinus rhythm with a soft murmur noted; S1 and S2 are normal, and no ectopy was heard. - Respiratory: Lungs are clear to auscultation bilaterally. - Abdomen: Bowel sounds are normal; the abdomen is soft and non-tender to palpation. - Extremities: No peripheral edema noted Coding Level of Care Code Est Pt Level 4 (08868) Complex visit Add On G2211 Diagnoses Primary hypertension I10 Atrial fibrillation, unspecified type I48.91 Atrial fibrillation type: unspecified GURPREET (obstructive sleep apnea) G47.33 Additional Codes PHQ-9 - 23307 - PHQ-9 Billing: Yes ([id number]) Assessment & Plan Assessment & Plan (1) Primary hypertension: Code(s): I10 - Essential (primary) hypertension Category: Medical (2) Atrial fibrillation: Code(s): I48.91 - Unspecified atrial fibrillation Category: Medical Qualifiers: Atrial fibrillation type: unspecified Qualified Code(s): I48.91 - Unspecified atrial fibrillation (3) GURPREET (obstructive sleep apnea): Code(s): G47.33 - Obstructive sleep apnea (adult) (pediatric) Category: Medical Plan Assessment and Plan 1. Atrial Fibrillation/HTN - The patient is scheduled for a Watchman procedure on August 07. - Continue diltiazem - Follow up with cardiology 2. Obstructive Sleep Apnea - The patient has self-discontinued CPAP therapy and reports subjective improvement. - Given that the last evaluation was 6-7 years ago and the patient's underlying cardiac condition, a referral to Sleep Medicine will be placed for a new sleep study to reassess the necessity and settings of CPAP therapy. 3. Erectile Dysfunction - This is a new complaint. - A referral will be placed to Urology for further evaluation to rule 4. Anxiety and Insomnia - The patient uses lorazepam very sparingly for stress-related anxiety 5. Hemorrhoids - Symptoms have improved with increased dietary fiber. - The patient will continue with dietary modifications and follow up colorectal as scheduled 6. Health Maintenance / Re-establishment of Care - Baseline labs, including HbA1c, liver enzymes, and a urine microalbumin will be ordered. - Follow up in 5 months for physical 7. Impaired fasting glucose- check a1c Plan - A referral will be placed to Sleep Medicine for a new sleep study to reevaluate the patient's obstructive sleep apnea. - A referral will be placed to Urology - Orders will be placed for baseline labs, including a hemoglobin A1c, liver function tests, and a urine microalbumin to check for proteinuria. Discussion Notes I had a detailed discussion with the patient about reestablishing care and the plan for health maintenance. Regarding the patient's decision to stop using the CPAP machine, I explained the importance of a formal reevaluation via a new sleep study, particularly given the patient's cardiac history, to ensure sleep apnea is adequately managed. We reviewed the plan for the upcoming Watchman procedure. For the new complaint of erectile dysfunction, I explained the rationale for a urology referral is to first rule out any concerning underlying causes before considering treatment options. Patient Instructions - Please go to the lab to get your blood and urine tests done. - You should not eat before your lab tests, but you can drink plain water or black coffee. - You will receive a call from the Sleep Medicine department to schedule a new sleep study. - A referral has been sent to the urology specialist - Continue your high-fiber diet for your hemorrhoids Orders: Orders Microalbumin, Random (w Creat) Today I10 - Essential (primary) hypertension, I48.91 - Unspecified atrial fibrillation, R73.01 - Impaired fasting glucose Lipid Panel Today I10 - Essential (primary) hypertension, I48.91 - Unspecified atrial fibrillation, R73.01 - Impaired fasting glucose Hemoglobin A1c Today I10 - Essential (primary) hypertension, I48.91 - Unspecified atrial fibrillation, R73.01 - Impaired fasting glucose Comprehensive Met. Panel Today I10 - Essential (primary) hypertension, I48.91 - Unspecified atrial fibrillation, R73.01 - Impaired fasting glucose Referrals Sleep Medicine Referral G47.33 - Obstructive sleep apnea (adult) (pediatric) Urology Referral N52.9 - Male erectile dysfunction, unspecified Medications: New lorazepam 0.5 mg PO DAILY PRN 30 tabs 0RF anxiety
[2025-07-18 15:17] VITALS: BP 130/82; PULSE 72; RESP 16; TEMP 36.5; O2SAT 97; BMI 33.5
--- OUTSIDE RECORDS SUMMARY | 2025-07-18 15:18 | XMS_ITS | Clinical Summary ---
Author Organization [address] [place] [address] [place] [phone] Phone Care Team Providers Care Account Associate Name Role Phone Nirali English MD Primary Care Provider +1- [phone] Allergies Active Allergy Reactions Criticality Noted Date [...] Maintenance, 09/13/23 2:07:00 PM EST, Tablet, [id number], Partial fill upon patient request if the [...] weight loss. PAF (paroxysmal atrial fibri llation) ([facility] V24, [facility] V28) 12/06/2022 Overview (08/05/2024): Paroxysmal atrial fibrillation: [...] a few somewhat brief breakthroughs. Based on [id number] score of 3 for hypertension, age and [...] Encounters Date Type Department Care Team Description 07/01/2025 Telephone [facility] [address] [place] [address] Guera Covarrubias, RN 06/11/[address] [place] [address] Guera Covarrubias, RN 05/30/[address] [place] [address] Guera Covarrubias RN 05/16/2025 Telephone [facility] [address] [facility] [address] [place] [address] Zack Schmidt MD 05/05/2025 Episode Changes [facility] [employer] [address] [place] [address] Rosa Elena Wolf RN 05/02/2025 2:15 PM EDT Anesthesia Event [facility] [employer] [address] [place] [address] Danielito Burkett MD 05/02/2025 12:22 PM EDT - 05/02/2025 11:59 PM EDT Hospital Encounter [facility] [employer] [address] [place] [address] Kiran Madera MD Claudio, Raymund, CRNA PAF (paroxysmal atrial fibrillation) ([facility] V24, [facility] V28) Discharge Disposition: Home or Self Care from Last 3 Months Social History Tobacco [...] 05/02/2025 1:12 PM EDT Plan of Treatment Upcoming Encounters Date Type Department Care Team (Latest Contact Info) Description 08/07/2025 12:10 PM EST Hospital Encounter [facility] EP Lab [address] [place] [address] [place] Schmidt [place] [address] PAF (paroxysmal atrial fibrillation) (CMS/HCC V24, CMS/HCC V28) 08/07/2025 12:10 PM EST - 08/07/2025 1:40 PM EST Surgery [facility] EP Lab [address] [place] [address] Zack Schmidt MD [address] [place] [address] [place] [address] Left atrial appendage closure (other) DEMARCUS (Dr. Bernabe) Health Maintenance Due Date Last Done Comments Colorectal Cancer Screening: Colonoscopy 1960 Pneumococcal Vaccine: 50+ Years (1 of 1 - PCV) 2008 Zoster Vaccines (1 of 2) 2008 Abdominal Aortic Aneurysm (AAA) Screen 08/06/2022 Cholesterol Screening (Lipid Panel) 08/06/2022 Hepatitis C Screening 08/06/2022 Social Influencers of Health Screening 08/06/2022 Falls Risk Assessment 2023 Depression Screening 08/28/2024 COVID-19 Vaccine (1 - 2024-2 6 season) 2025 Influenza Vaccine (#1) 2025 Hypertension/CHF/CAD [...] V24, CMS/HCC V28) from Last 3 Months or Most Recently Relevant to Health Maintenance Results * DEMARCUS COMPLETE W/COLOR FLOW AND [...] obtained. The probe was inserted by the contract administrative assistant. There was no probe insertion difficulty. by anesthesia. The patient had no complications. Estimated blood loss: no blood loss. No specimens were collected. Clinical Background 64 years old male patient with history of paroxysmal atrial fibrillation who was referred for a transesophageal echocardiogram prior to a potential Watchman device placement. Procedure Details [facility] Department of cardiology Procedure: Transesophageal echocardiogram Indication: [...] services. The patient was monitored with a nurse monitoring, blood pressure monitor, and oxygen saturation monitoring [...] throat discomfort, or bleeding Disposition: Discharge home. Abby Rodriguez PAINTER HAND CV ECHO PROCEDURES Final Res ult * (ABNORMAL) Basic metabolic panel (04/07/2025 3:48 PM EDT) Pathologist [facility] Sodium 140 133 - 145 mmol/L LAB CHEMISTRY METHOD 04/07/2025 5:09 PM [facility] Potassium 4.3 3.5 - 5.5 mmol/L LAB CHEMISTRY METHOD 04/07/2025 5:09 PM [facility] Chloride 108 96 - 110 mmol/L LAB CHEMISTRY METHOD 04/07/2025 5:09 PM [facility] CO2 30 21 - 32 mmol/L LAB CHEMISTRY METHOD 04/07/2025 5:09 PM [facility] Anion Gap 2(L) 3 - 11 LAB CHEMISTRY METHOD 04/07/2025 5:09 PM [facility] Glucose 101(H) 70 - 100 mg/dL LAB CHEMISTRY METHOD 04/07/2025 5:09 PM [facility] BUN 18 5 - 25 mg/dL LAB CHEMISTRY METHOD 04/07/2025 5:09 PM [facility] Creatinine 1.18 0.70 - 1.30 mg/dL LAB CHEMISTRY METHOD 04/07/2025 5:09 PM [facility] eGFR 68 >=60 mL/min/1. 73m2 LAB CHEMISTRY METHOD 04/07/2025 5:09 PM [facility] Comment:Calculation based on the Chronic Kidney Disease Epidemiology Collaboration (CKD-EPI) equation refit without adjustment for race. BUN/Creatinine Ratio 15.3 LAB CHEMISTRY METHOD 04/07/2025 5:09 PM EDT [facility] Calcium 8.9 8.5 - 10.5 mg/dL LAB CHEMISTRY METHOD 04/07/2025 5:09 PM EDT [facility] Blood Venous blood specimen / Unknown Venipuncture / Unknown 04/07/2025 3:48 PM EDT 04/07/2025 3:58 PM EDT us Abby Rodriguez PAINTER HAND LAB BLOOD ORDERABLES Final R esult [facility] [address] [place] [address], from Last 3 Months or Most Recently Relevant to Health Maintenance Insurance MEDICARE [facility] Advance Directives Documents on File Type Date Recorded 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
== END 2025-07-18 16:15 | disposition home or self-care (01) ==
LOC: HO.HMCHD 15:15
PROVIDERS: PCP Internal Medicine; Visit Provider Internal Medicine
DX: I10 Essential (primary) hypertension (principal); I48.91 Unspecified atrial fibrillation; G47.33 Obstructive sleep apnea (adult) (pediatric)

== ENCOUNTER → 2025-07-18 15:14 | Outpatient (BNVA) | payer BC, SELFPAY | PROVIDERS: PCP Internal Medicine; Visit Provider Internal Medicine | DX: Z76.89 Persons encountering health services in other specified circumstances (principal); I10 Essential (primary) hypertension; I48.91 Unspecified atrial fibrillation; G47.33 Obstructive sleep apnea (adult) (pediatric); K64.9 Unspecified hemorrhoids; F41.9 Anxiety disorder, unspecified; N52.9 Male erectile dysfunction, unspecified; Z13.31 Encounter for screening for depression | CPT/HCPCS: 96127 ==

== ENCOUNTER 2025-07-21 09:00 | Outpatient (REF) | payer BC, SELFPAY ==
[2025-07-21 11:24] LABS: Alanine Aminotransferase 43 U/L (0-40); Albumin Level 4.2 g/dL (3.5-5.0); Alkaline Phosphatase 93 U/L (39-117); Anion Gap 11 (12-20); Aspartate Amino Transferase 32 U/L (5-37); Blood Urea Nitrogen 14 mg/dL (9-16); Calcium 9.0 mg/dL (8.4-10.2); Carbon Dioxide 27 mmol/L (22-29); Chloride 106 mmol/L (96-108); Cholesterol 181 mg/dL (<200); Estimated Glomerular Filt Rate > 60; HDL Cholesterol 53 mg/dL (>40); Potassium 4.2 mmol/L (3.3-5.1); Sodium 140 mmol/L (135-145); Total Protein 7.6 g/dL (6.5-8.0); Triglycerides 62 mg/dL (<150)
[2025-07-21 11:52] LABS: Microalbum/Creatinine Ratio Ur 6.6 ug/mg cr (<30)
== END 2025-07-21 09:01 | disposition home or self-care (01) ==
LOC: HO.10HDL 09:00
PROVIDERS: Visit Provider Internal Medicine
DX: I10 Essential (primary) hypertension (principal); I48.91 Unspecified atrial fibrillation; R73.01 Impaired fasting glucose
CPT/HCPCS: 36415; 80053; 80061; 82043; 82570; 83036

== ENCOUNTER 2025-07-21 09:42 | Outpatient (AMB) | payer BC, SELFPAY ==
--- OUTSIDE RECORDS SUMMARY | 2025-07-21 11:21 | XMS_ITS | Clinical Summary ---
Author Organization [address] [place] [address] [place] [phone] Phone Care Team Providers Care Highway Landscape Architect Name Role Phone Nirali English MD Primary Care Provider +1- [phone] Allergies Active Allergy Reactions Criticality Noted Date [...] Maintenance, 09/13/23 2:07:00 PM EST, Tablet, [id number], Partial fill upon patient request if the [...] weight loss. PAF (paroxysmal atrial fibri llation) ([facility] V24, [facility] V28) 12/06/2022 Overview (08/05/2024): Paroxysmal atrial fibrillation: [...] a few somewhat brief breakthroughs. Based on [id number]-PMTo score of 3 for hypertension, age and [...] Type Department Care Team Description 07/01/2025 Telephone [facility] [address] [place] [address] Guera Covarrubias, RN 06/11/[address] [place] [address] Guera Covarrubias, RN 05/30/[address] [place] [address] Guera Covarrubias RN 05/16/2025 Telephone [facility] [address] [facility] [address] [place] [address] Zack Schmidt MD 05/05/2025 Episode Changes [facility]iac [employer] [address] [place] [address] Rosa Elena Wolf RN 05/02/2025 2:15 PM EDT Anesthesia Event [facility] [employer] [employer] [address] [place] [address] Danielito Burkett MD 05/02/2025 12:22 PM EDT - 05/02/2025 11:59 PM EDT Hospital Encounter [facility] [employer] [employer] [address] [place] [address] Kiran Madera MD Claudio, Raymund, CRNA PAF (paroxysmal atrial fibrillation) ([facility] V24, [facility] V28) Discharge Disposition: Home or Self Care [...] Description 08/07/2025 12:10 PM EST Hospital Encounter [facility] EP Lab [address] [place] [address] Z[place] Schmidt [place] [address] PAF (paroxysmal atrial fibrillation) (CMS/HCC V24, CMS/HCC V28) 08/07/2025 12:10 PM EST - 08/07/2025 1:40 PM EST Surgery [facility] EP Lab [address] [place] [address] Zack Schmidt MD [address] [place] [address] [place] [address] Left atrial appendage closure (other) DEMARCUS (Dr. [...] obtained. The probe was inserted by the marketing budget analyst. There was no probe insertion difficulty. by anesthesia. The patient had no complications. Estimated blood loss: no blood loss. No specimens were collected. Clinical Background 64 years old male patient with history of paroxysmal atrial fibrillation who was referred for a transesophageal echocardiogram prior to a potential Watchman device placement. Procedure Details [facility] Department of cardiology Procedure: Transesophageal echocardiogram Indication: [...] services. The patient was monitored with a set up operator, blood pressure monitor, and oxygen saturation monitoring [...] or bleeding Disposition: Discharge home. Abby Rodriguez LIFT OPERATOR CV ECHO PROCEDURES Final Res ult * (ABNORMAL) Basic metabolic panel (04/07/2025 3:48 PM EDT) Pathologist [facility] Sodium 140 133 - 145 mmol/L LAB CHEMISTRY METHOD 04/07/2025 5:09 PM [facility] Potassium 4.3 3.5 - 5.5 mmol/L LAB CHEMISTRY METHOD 04/07/2025 5:09 PM [facility] Chloride 108 96 - 110 mmol/L LAB CHEMISTRY METHOD 04/07/2025 5:09 PM [facility] CO2 30 21 - 32 mmol/L LAB CHEMISTRY METHOD 04/07/2025 5:09 PM [facility] Anion Gap 2(L) 3 - 11 LAB CHEMISTRY METHOD 04/07/2025 5:09 PM [facility] Glucose 101(H) 70 - 100 mg/dL LAB CHEMISTRY METHOD 04/07/2025 5:09 PM [facility] BUN 18 5 - 25 mg/dL LAB CHEMISTRY METHOD 04/07/2025 5:09 PM [facility] Creatinine 1.18 0.70 - 1.30 mg/dL LAB CHEMISTRY METHOD 04/07/2025 5:09 PM [facility] eGFR 68 >=60 mL/min/1. 73m2 LAB CHEMISTRY METHOD 04/07/2025 5:09 PM [facility] Comment:Calculation based on the Chronic Kidney Disease Epidemiology Collaboration (CKD-EPI) equation refit without adjustment for race. BUN/Creatinine Ratio 15.3 LAB CHEMISTRY METHOD 04/07/2025 5:09 PM EDT [facility] Calcium 8.9 8.5 - 10.5 mg/dL LAB CHEMISTRY METHOD 04/07/2025 5:09 PM EDT [facility] Blood Venous blood specimen / Unknown Venipuncture / Unknown 04/07/2025 3:48 PM EDT 04/07/2025 3:58 PM EDT us Abby Rodriguez LIFT OPERATOR LAB BLOOD ORDERABLES Final R esult [facility] [address] [place] [address], from Last 3 Months or Most Recently Relevant to Health Maintenance Insurance MEDICARE [facility] Advance Directives Documents on File Type Date Recorded 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
== END 2025-07-21 09:43 | disposition home or self-care (01) ==
LOC: HO.HMGAL 09:42
PROVIDERS: PCP Internal Medicine; Visit Provider Registered Nurse Emergency
DX: J30.89 Other allergic rhinitis (principal)
CPT/HCPCS: 95117; 95165

== ENCOUNTER 2025-08-05 09:33 | Outpatient (AMB) | payer BC, SELFPAY ==
--- NOTE | 2025-08-05 10:09 | A.OFFVIS_ITS ---
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 He has a h/o Afib, with 2 ablations in the past to control arrythmias. Now pending a watchman procedure at [facility] in [place] with Dr. Whitley . He was on cpap therapy for 7 years and stopped using it due to discomfort. He denies snoring and gasping for air, he says he feels better without use of cpap. Denies bruxism, and morning headaches. He also has allergies, denies polyps, cysts, deviated septum or facial injuries and gets allergy shots monthly, if he misses his shot, the sinuses become congested has rhinorrhea.He has acid reflux, managed with diet and life style. BP is managed well on meds. He has anxiety and fluctuates depending on his mood and level of stress at work. His memory is stable will occasionally forget items, not concerned. His diet is good, he walks 1-2 miles a daily, drinks about 32 oz of water daily. Denies RLS, parasomnias, flailing, punching, thrashing behaviors. Denies alcohol use, MJ, edibles and is a former 40pk year smoker. 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 [employer] Physical Exam Vital Signs: Last Vital Signs Pulse 66 08/05/25 10:10 BP 124/80 08/05/25 10:10 Pulse Ox 96 08/05/25 10:10 Oxygen Delivery Method Room Air 08/05/25 10:10 BMI result Body Mass Index 34.3 Const General: cooperative, comfortable and no acute distress Nutritional Appearance: average body habitus Orientation/consciousness: patient oriented x3 HEENT Face and sinus: Yes face symmetric Teeth and gingiva: other (mallampti score is 3) Eyes Pupils: Equal, round and reactive pupils present Neck Neck: Yes full ROM Resp Effort & Inspection: normal respiratory effort and able to speak in complete sentences Neuro Other: upper ext bilateral tremors mild on outstretched hands General: patient oriented x3 and moves all extremities Cranial nerves: Yes Equal, round and reactive pupils present, Yes Normal accommodation reflex present, Yes Normal facial strength present, Yes Midline tongue present, Yes Ability to bilaterally rotate head present and Yes Ability to bilaterally elevate shoulders present Cognition (Neuro): normal cognition Gait exam (Neuro): Normal gait present Motor exam (neuro): 5/5 motor strength present throughout and Normal motor muscle tone present throughout Coordination: [id number]-ea-cpna test normal (tremor is more prominent) Psych Appearance: grossly normal Mental Status: mental status grossly normal Affect: normal affect Thought process: Normal thought process present Thought content: Normal thought content present Results Reviewed Results Reviewed: labs reviewed with pt Assessment & Plan Assessment & Plan (1) Excessive daytime sleepiness: Code(s): G47.19 - Other hypersomnia Category: Medical (2) Atrial fibrillation: Code(s): I48.91 - Unspecified atrial fibrillation Category: Medical Qualifiers: Atrial fibrillation type: unspecified Qualified Code(s): I48.91 - Unspecified atrial fibrillation Plan PSG in lab due to AFib and ablation undergong watchman procedure 08/07/[address] [facility] in [place]. Excessive daytime fatigue, Labs reviewed with pt, ldl elevated. Chemistry is normal, refer to pcp. F/U in 3 months Orders: Orders RT PSG in-lab sleep study Today G47.19 - Other hypersomnia, I48.91 - Unspecified atrial fibrillation Patient Instructions: Please complete the following fasting labs to rule out deficiencies. CBC/CMP/ B12/ Vit D/ TSH/ Homocysteine and MMA/ Ferritin. Sleep Hygiene provided: set a scheduled bedtime and wake time to help regulate the circadian rhythm and balance the release of pituitary hormones. Sleep in a dark room, temperatures below 68 degrees, and no devices n bed. Limit caffeinated products 6 hours prior to bed, and limit fluids 2-4 hours prior to bed. Gentle night yoga, diffusing essential oils, and playing soft music can be relaxing. Coding Level of Care Code Est Pt Level 4 (05600) Diagnoses Excessive daytime sleepiness G47.19 Atrial fibrillation, unspecified type I48.91 Atrial fibrillation type: unspecified
[2025-08-05 10:10] VITALS: BP 124/80; PULSE 66; O2SAT 96; BMI 34.3
== END 2025-08-05 10:44 | disposition home or self-care (01) ==
LOC: HO.HSMS 09:34
PROVIDERS: PCP Internal Medicine; Visit Provider Physician Assistant Medical
DX: G47.19 Other hypersomnia (principal); I48.91 Unspecified atrial fibrillation
CPT/HCPCS: 99214

== ENCOUNTER 2025-08-11 16:22 | Outpatient (AMB) | payer BC, SELFPAY ==
--- OUTSIDE RECORDS SUMMARY | 2025-08-11 22:34 | XMS_ITS | Clinical Summary ---
Author Organization [address] [place] [address] [place] [phone] Phone Care Team Providers Care Sales Operations Name Role Phone Nirali English MD Primary Care Provider [phone]- [phone] Allergies Active Allergy Reactions Criticality Noted Date [...] Maintenance, 09/13/23 2:07:00 PM EST, Tablet, [id number], Partial fill upon patient request if the [...] efforts at weight loss. PAF (paroxysmal atrial fibrillation) 12/06/2022 Overview (08/05/2024): Paroxysmal atrial fibrillation: Status [...] a few somewhat brief breakthroughs. Based on [id number] score of 3 for hypertension, age and [...] Encounters Date Type Department Care Team Description 08/05/[address] [place] [address] Guera Covarrubias, RN 07/30/[address] [place] [address] Guera Covarrubias, RN 07/30/[address] [place] [address] Guera Covarrubias, RN 07/29/2025 9:20 AM EST Lab Draw Station - [address] [phone] PAF (paroxysmal atrial fibrillation) (CMS/HCC V24, CMS/HCC V28) 07/28/2025 Telephone [facility] Cardiology [facility] [address] [place] [address] Zack Schmidt MD 07/21/2025 Telephone [facility]iology [facility] [address] [place] [address] Zack Schmidt MD 07/01/[address] [place] [address] Guera Covarrubias, RN 06/11/[address] [place] [address] Guera Covarrubias, RN 05/30/[address] [place] [address] Guera Covarrubias, RN 05/16/2025 Telephone [facility]iology [facility] [address] [place] [address] Zack Schmidt MD from Last 3 Months [...] on file Sexual Orientation Not on file Last Filed Vital Signs Vital Sign Reading [...] 05/02/2025 1:12 PM EDT Plan of Treatment Health Maintenance Due Date Last Done Comments Colorectal Cancer Screening: Colonoscopy 1960 Drug Screen 1960 Non-Opioid Controlled Substance Agreement 1960 Pneumococcal Vaccine: 50+ Years (1 of 1 - PCV) 2008 Zoster Vaccines (1 of 2) 2008 Abdominal Aortic Aneurysm (AAA) Screen 08/06/2022 Cholesterol Screening (Lipid Panel) 08/06/2022 Hepatitis C Screening 08/06/2022 Social Influencers of Health Screening 08/06/2022 Falls Risk Assessment 2023 Depression Screening 08/28/2024 COVID-19 Vaccine (1 - 2024-2 6 season) 2025 Influenza Vaccine (#1) 2025 Hypertension/CHF/CAD Annual BMP Blood Test 07/29/2026 07/29/2025, 04/07/2025 RSV Immunization Adult Patients (1 - [...] Procedure Name Priority Date/Time Associated Diagnosis Comments COMPLETE BLOOD COUNT Routine 07/29/2025 9:22 AM EST PAF (paroxysmal atrial fibrillation) ([facility] V24, [facility] V28) PROTHROMBIN TIME WITH INR Routine 07/29/2025 9:22 AM EST PAF (paroxysmal atrial fibrillation) ([facility] V24, [facility] V28) BASIC METABOLIC PANEL Routine 07/29/2025 9:22 AM EST PAF (paroxysmal atrial fibrillation) ([facility] V24, [facility] V28) from Last 3 Months Results * Prothrombin time with INR (07/29/2025 9:22 AM EST) Protime 13.0 10.6 - 13.9 sec LAB COAGULATION METHOD 07/29/2025 10:13 AM EST [facility] INR 1.0 LAB COAGULATION METHOD 07/29/2025 10:13 AM EST [facility] Blood Venous blood specimen / Unknown Venipuncture / Unknown 07/29/2025 9:22 AM EST 07/29/2025 9:50 AM EST us Zack Schmidt MD LAB BLOOD ORDERABLES Final Res ult [facility] [address] [place] [address], [place] [phone] * (ABNORMAL) Complete blood count (07/29/2025 9:22 AM EST) WBC 9.3 4.8 - 10.8 K/mcL LAB HEMETOLOGY METHOD 07/29/2025 10:14 AM EST [facility] RBC 6.00(H) 4.50 - 5.50 M/mcL LAB HEMETOLOGY METHOD 07/29/2025 10:[address] [facility] Hemoglobin 17.1 13.5 - 17.5 g/dL LAB HEMETOLOGY METHOD 07/29/2025 10:[address] [facility] Hematocrit 51.4 42.0 - 54.0 % LAB HEMETOLOGY METHOD 07/29/2025 10:14 AM EST [facility] MCV 86.1 79.0 - 98.0 FL LAB HEMETOLOGY METHOD 07/29/2025 10:[address] [facility] MCH 28.6 27.0 - 32.0 pcg LAB HEMETOLOGY METHOD 07/29/2025 10:[address] [facility] MCHC 33.3 32.0 - 37.0 g/dL LAB HEMETOLOGY METHOD 07/29/2025 10:[address] [facility] RDW 13.8 11.0 - 15.0 % LAB HEMETOLOGY METHOD 07/29/2025 10:[address] [facility] Platelets 209 130 - 400 K/mcL LAB HEMETOLOGY METHOD 07/29/2025 10:[address] [facility] MPV 9.8 7.0 - 11.0 FL LAB HEMETOLOGY METHOD 07/29/2025 10:14 AM EST [facility] NRBC 0.0 <1.0 % LAB HEMETOLOGY METHOD 07/29/2025 10:[address] [facility] NRBC Absolute 0.00 <0.10 K/mcL LAB HEMETOLOGY METHOD 07/29/2025 10:[address] [facility] Blood Venous blood specimen / Unknown Venipuncture / Unknown 07/29/2025 9:22 AM EST 07/29/2025 9:49 AM EST us Zack Schmidt MD LAB BLOOD ORDERABLES Final Res ult [facility] [address] [place] [address], [place] [phone] * (ABNORMAL) Basic metabolic panel (07/29/2025 9:22 AM EST) Sodium 143 133 - 145 mmol/L 07/29/2025 11:[address] [facility] Potassium 4.2 3.5 - 5.5 mmol/L 07/29/2025 11:[address] [facility] Chloride 104 96 - 110 mmol/L 07/29/2025 11:[address] [facility] CO2 27 21 - 32 mmol/L 07/29/2025 11:[address] [facility] Anion Gap 12(H) 3 - 11 07/29/2025 11:[address] [facility] Glucose 74 70 - 100 mg/dL 07/29/2025 11:[address] [facility] BUN 20 5 - 25 mg/dL 07/29/2025 11:[address] [facility] Creatinine 1.13 0.70 - 1.30 mg/dL 07/29/2025 11:[address] [facility] eGFR 71 >=60 mL/min/1. 73m2 07/29/2025 11:15 AM EST [facility] Comment:Calculation based on the Chronic Kidney Disease Epidemiology Collaboration (CKD-EPI) equation refit without adjustment for race. BUN/Creatinine Ratio 17.7 07/29/2025 11:15 AM EST [facility] Calcium 9.5 8.5 - 10.5 mg/dL 07/29/2025 11:15 AM EST [facility] Blood Venous blood specimen / Unknown Venipuncture / Unknown 07/29/2025 9:22 AM EST 07/29/2025 9:49 AM EST us Zack Schmidt MD LAB BLOOD ORDERABLES Final Res ult [facility] [address] [place] [address], [place] [phone] from Last 3 Months Insurance MEDICARE [facility] Advance Directives Documents on File Type Date Recorded Patient Noc Analyst Expl anation Health Care Decision (hx) 03/19/2021 AD ARROYO DIRECTIVE Health Care Decision (hx) 03/19/2021 AD ARROYO DIRECTIVE Health Care Decision (hx) 03/19/2021 AD ARROYO DIRECTIVE Health Care Decision (hx) 03/19/2021 AD ARROYO DIRECTIVE Health Care Decision (hx) 03/19/2021 AD ARROYO DIRECTIVE Care Teams Sales Operations Relationship Specialty Start Date End Date Nirali English MD [address] [place] [address] PCP - General Internal Medicine 07/31/25
--- OUTSIDE RECORDS SUMMARY | 2025-08-11 22:34 | XMS_ITS | Encounter Summary ---
Author Organization [place] [address] Care Team Providers Care Refrigeration Specialist Name Role Phone Nirali English MD Primary Care Provider +1- [phone] Reason for Visit * Reason Onset Date Comments Insurance auth followup 08/05/2025 Encounter Details Date Type Department Care Team ([facility] Contact Info) Description 08/05/[address] [address] Guera Covarrubias, RN Social History Tobacco Use Types Packs/Day Years [...] as of this encounter Progress Notes * Abby Rodriguez NP - 08/07/2025 10:10 AM EST They are starting to do same-day PVI/watchman at [facility], this is something we can schedule with Dr. Schmidt or if the patient is in agreement he could have it with Dr. Sheldon? * Esau Myers - 08/06/2025 2:51 PM EST Called patient and left voicemail with information below * Lorene Munoz - 08/06/2025 2:15 PM EST I spoke with Mary in the Health and Medical Management Dept. at [facility] at [facility] regarding the prior authorization request we submitted. She [place]. Elective procedures must be performed in the same state as the servicing provider. Since Dr. Schmidt does not have a [place] address he is not covered to perform the elective procedure in [place]. The patient's PCP would need to submit an [id number] so we can request an out of network Prior Authorization request. She also stated the pa request submitted on the web portal had a different NPI for the facility. Dr. Schmidt [place] only in network in [place]. The call reference# is Mary Gipson 08/06/25 2:08pm EST * Guera Covarrubias RN - 08/05/2025 11:33 AM EST Spoke with patient regarding his PVI/Watchman procedure cancellation. Patient is frustrated with insurance co. He is aware that procedure has been cancelled. Once insurance problem resolved procedurecan be rescheduled. All questions answered to his satisfaction. documented in this encounter Plan of Treatment Not on file documented as of this encounter Visit Diagnoses Not on filedocumented in this encounter Care Teams Refrigeration Specialist Relationship Specialty Start Date End Date Nirali English MD [facility] [place] [address] PCP - General Internal Medicine 07/31/25 documented as of this encounter
== END 2025-08-11 16:25 | disposition home or self-care (01) ==
LOC: HO.HMGAL 16:22
PROVIDERS: PCP Internal Medicine; Visit Provider Registered Nurse Emergency
DX: J30.89 Other allergic rhinitis (principal)
CPT/HCPCS: 95117; 95165